=== PATIENT | male | born 1960 | race Caucasian/White ===

== ENCOUNTER 2022-05-02 18:00 | Outpatient (CLI) | payer BC | END 2022-05-02 18:01 | disposition home or self-care (01) | LOC: SLEEPLAB 18:00 | PROVIDERS: ATTEND Family Medicine | DX: G47.33 Obstructive sleep apnea (adult) (pediatric) (principal); R53.83 Other fatigue; R06.83 Snoring; E11.9 Type 2 diabetes mellitus without complications; I10 Essential (primary) hypertension; G47.00 Insomnia, unspecified; R09.02 Hypoxemia | CPT/HCPCS: 95800 ==